=== PATIENT | female | born 1965 | race Asian ===

== ENCOUNTER 2019-09-05 18:08 | Emergency (ER) | payer MEDICAID ==
[~2019-09-05] VITALS: Ht 165.1 cm; Wt 65.9 kg
[2019-09-05] MEDS ORDERED: MORPHINE SULFATE 4 MG/ML SYRINGE IM ONE (19:30)
[2019-09-05] MEDS ORDERED: HYDROCODONE/ACETAMINOPHEN 5-325 MG TABLET PO ONE (19:30)
[2019-09-05] MEDS ORDERED: ONDANSETRON HCL 4 MG/2 ML VIAL IM ONE (19:30)
[2019-09-05 20:48] VITALS: BP 123/76
== END 2019-09-05 21:01 | disposition home or self-care (01) ==
LOC: EMS 18:08
DX: S82.841A Displaced bimalleolar fracture of right lower leg, initial encounter for closed fracture (principal); W01.0XXA Fall on same level from slipping, tripping and stumbling without subsequent striking against object, initial encounter; Y93.89 Activity, other specified; Y92.89 Other specified places as the place of occurrence of the external cause; Y99.8 Other external cause status
CPT/HCPCS: 29515

== ENCOUNTER 2025-02-20 18:23 | Emergency (ER) | payer MEDICAID ==
[~2025-02-20] VITALS: Ht 165.1 cm; Wt 66.0 kg
[2025-02-20 19:55] VITALS: TEMP 97.8
[2025-02-20 20:19] LABS: PLATELET COUNT (AUTO) 214 K/uL (150-450); RED BLOOD CELL COUNT(AUTO) 3.58 MIL/uL (4.00-5.20); RED CELL DISTRIBUTION WIDTH 13.2 % (11.5-14.5); WHITE BLOOD COUNT (AUTO) 9.3 K/uL (4.5-11.0)
[2025-02-20 20:25] LABS: CALCIUM, TOTAL 8.1 mg/dL (8.8-10.5); CREATININE 0.96 mg/dL (0.60-1.30); GLOMERULAR FILTR. RATE CALC 59 mL/min (>60); GLUCOSE,RANDOM 122 mg/dL (70-110); SODIUM SERUM 137 mmol/L (136-145); UREA NITROGEN, BLOOD 10 mg/dL (7-18)
[2025-02-20 20:32] LABS: ASPARTATE AMINOTRANSFERASE 15.0 U/L (15-37); TOTAL PROTEIN, SERUM 6.5 g/dL (6.4-8.2)
[2025-02-20 20:33] LABS: TROPONIN I-HIGH SENSITIVITY 4 ng/L (<51)
[2025-02-20 22:53] VITALS: BP 95/54; PULSE 75; RESP 18; O2SAT 97
[2025-02-20] MEDS: SODIUM CHLORIDE 0.9% 1,000 ML IV ONE (22:55)
[2025-02-20 23:46] LABS: PH,URINE DRUG SCREEN 8.0 (5.0-8.0)
[2025-02-20 23:51] LABS: AMPHET/METH SCREEN,URINE NEGATIVE (NEGATIVE); BARBITURATE SCREEN, URINE NEGATIVE (NEGATIVE); CANNABINOID SCREEN,URINE POSITIVE (NEGATIVE); COCAINE SCREEN,URINE NEGATIVE (NEGATIVE); METHADONE SCREEN, URINE NEGATIVE (NEGATIVE)
[2025-02-20 23:52] LABS: ALCOHOL, URINE DRUG SCREEN NEGATIVE (NEGATIVE)
== END 2025-02-21 03:29 | disposition admitted as inpatient to this hospital (09) ==
LOC: EMS 18:23
DX: R11.2 Nausea with vomiting, unspecified (principal); F12.929 Cannabis use, unspecified with intoxication, unspecified; F32.A Depression, unspecified; Z88.7 Allergy status to serum and vaccine
CPT/HCPCS: 99285; 96360; 96361; 80048; 80076; 83690; 83880; 84484; 85025; 36415; 74018; 93005; 80307; J7030